=== PATIENT | male | born 1950 | race Caucasian/White ===

== ENCOUNTER 2019-04-21 17:02 | Inpatient (IN) | payer OTHER, MEDICAID ==
[~2019-04-21] VITALS: Ht 193 cm; Wt 78.9 kg
[2019-04-21 17:37] VITALS: BP_SYST 114
[2019-04-21] MEDS ORDERED: APIX5TAB4 PO (17:50)
[2019-04-21] MEDS ORDERED: HYDR12.55 PO (17:50)
--- NOTE | 2019-04-21 18:00 | NUR ---
opening notes pt is direct admit from home, pt is aaox1, history of alzheimers per pt's for 7 years. pt has history of multiple falls, noted abrasion on the r. eyebrow. verbal but incorherent. safety precaution in place. bed alrm on. eductaed on the use of call light and bed and tv conttrols but unable to understand teaching. safety precaution in place. call light in reach. bed locked, in low position. bed alarm on. will endorse to night rn.
[2019-04-21] MEDS ORDERED: SER100 PO (18:01)
[2019-04-21] MEDS ORDERED: LIP10 PO (18:01)
[2019-04-21] MEDS ORDERED: GLU500 PO (18:01)
[2019-04-21] MEDS ORDERED: GALA12TA4 PO (18:01)
[2019-04-21] MEDS ORDERED: LOSA100T3 PO (18:01)
[2019-04-21] MEDS ORDERED: MEMA10TA PO (18:01)
[2019-04-21] MEDS ORDERED: PRO40 PO (18:01)
[2019-04-21] MEDS ORDERED: CEL20 PO (18:01)
[2019-04-21] MEDS ORDERED: DIVA250T PO (18:01)
[2019-04-21 18:18] LABS: BASOPHILS # (AUTO) 0.1 K/uL (0.0-0.2); BASOPHILS % (AUTO) 0.6 % (0.0-2.0); EOSINOPHILS # (AUTO) 0.3 K/uL (0.0-0.4); EOSINOPHILS % (AUTO) 2.5 % (0.0-4.0); HEMATOCRIT 39.2 % (36-54); HEMOGLOBIN 12.6 g/dL (14.0-18.0); LYMPHOCYTES # (AUTO) 2.2 K/uL (1.0-5.5); LYMPHOCYTES % (AUTO) 18.3 % (20.5-51.5); MEAN CORPUSCULAR HEMOGLOBIN 28 pg (27-31); MEAN CORPUSCULAR HGB CONC 32 % (32-36); MEAN CORPUSCULAR VOLUME 88 fL (79.0-98.0); MONOCYTES # (AUTO) 1.1 K/uL (0.0-1.0); MONOCYTES % (AUTO) 9.1 % (1.7-9.3); NEUTROPHILS # (AUTO) 8.2 K/uL (1.8-7.7); NEUTROPHILS % (AUTO) 69.5 % (40.0-70.0); PLATELET COUNT (AUTO) 104 K/uL (130-430); RED BLOOD CELL COUNT(AUTO) 4.45 MIL/uL (4.2-6.2); RED CELL DISTRIBUTION WIDTH 14.3 % (9.0-15.0); WHITE BLOOD COUNT (AUTO) 11.8 K/uL (4.8-10.8)
[2019-04-21 18:27] LABS: ALBUMIN 3.2 g/dL (3.4-4.8); CALCIUM 9.6 mg/dL (8.4-11.0); CREATININE 1.19 mg/dL (0.55-1.30); POTASSIUM 3.9 mmol/L (3.5-5.1); TOTAL BILIRUBIN 0.5 mg/dL (0.0-1.0)
[2019-04-21] MEDS ORDERED: CITALOPRAM HYDROBROMIDE 20 MG TABLET PO ONE (19:15)
[2019-04-21] MEDS ORDERED: D5W 1,000 ML IV PRN (19:30)
[2019-04-21] MEDS ORDERED: DEXTROSE 50%-WATER 50 ML DISP.SYRIN IVP PRN (19:30)
[2019-04-21] MEDS ORDERED: metFORMIN HCL 500 MG TABLET PO ONE (19:30)
[2019-04-21] MEDS ORDERED: GLUCOSE 15 GM GEL (in 37.5 GM TUBE) PO PRN (19:30)
--- NOTE | 2019-04-21 19:30 | NUR ---
PM NOTES pt. is confused, noted with garbled speech, reoriented to reality and surroundings, vital signs stable, no distress noted, denies pain, encouraged pt. to use call light for assistance, call light within reach, bed in lowest position.
[2019-04-21 20:00] VITALS: BP_SYST 117
--- NOTE | 2019-04-21 20:00 | NUR ---
CONFUSION pt. is confused, pt. is standing at bedside, reoriented pt. to surroundings, fall precautions maintained, assisted pt. back into bed.
[2019-04-21] MEDS: ATORVASTATIN 10 MG TABLET PO SCH (20:18)
[2019-04-21] MEDS: MEMANTINE HCL 5 MG TABLET PO SCH (20:18)
[2019-04-21] MEDS: DIVALPROEX SODIUM 250 MG TAB.SR.24H (DEPAKOTE ER) PO SCH (20:18)
[2019-04-21] MEDS: QUEtiapine FUMARATE 100 MG TABLET PO SCH (20:18)
[2019-04-21] MEDS: GALANTAMINE HYDROBROMIDE 4 MG TABLET PO SCH (20:18)
[2019-04-21] MEDS: INSULIN REGULAR, HUMAN 100 UNITS/ML, 10 ML VIAL (novoLIN R) SUBCUT PRN (20:26)
--- NOTE | 2019-04-21 20:27 | NUR ---
Med pass. Blood sugar 158. Administered 2 units of regular insulin per PRN insulin sliding scale.
[2019-04-21] MEDS ORDERED: KCL 20 mEq in D5/0.45NS 1000mL 1,000 ML IV ONE (21:14)
[2019-04-21] MEDS: KCL 20 mEq in D5/0.45NS 1000mL 1,000 ML IV SCH (21:37)
--- NOTE | 2019-04-21 22:00 | NUR ---
RN ROUNDS pt. asleep, no distress noted, no s/s of pain or discomfort, bed in lowest position, bed alarm on.
--- NOTE | 2019-04-22 00:02 | NUR ---
RN ROUNDS pt. asleep, no distress noted, no s/s of pain or discomfort, bed in lowest position, bed alarm on.
--- NOTE | 2019-04-22 02:02 | NUR ---
RN ROUNDS pt. sleeping, no distress noted, no s/s of pain or discomfort, bed in lowest position, bed alarm on.
[2019-04-22 04:00] VITALS: BP_SYST 121
--- NOTE | 2019-04-22 04:55 | NUR ---
INCONTINENCE PT. INCONTINENT OF URINE, MORRO CARE DONE, NEW GOWN APPLIED, NEW LINEN APPLIED.
[2019-04-22 05:08] LABS: BASOPHILS % (AUTO) 0.5 % (0.0-2.0); EOSINOPHILS # (AUTO) 0.3 K/uL (0.0-0.4); EOSINOPHILS % (AUTO) 3.9 % (0.0-4.0); HEMOGLOBIN 11.3 g/dL (14.0-18.0); LYMPHOCYTES # (AUTO) 1.9 K/uL (1.0-5.5); LYMPHOCYTES % (AUTO) 24.9 % (20.5-51.5); MEAN CORPUSCULAR HEMOGLOBIN 28 pg (27-31); MEAN CORPUSCULAR HGB CONC 32 % (32-36); MEAN CORPUSCULAR VOLUME 88 fL (79.0-98.0); MONOCYTES # (AUTO) 0.7 K/uL (0.0-1.0); MONOCYTES % (AUTO) 9.1 % (1.7-9.3); NEUTROPHILS # (AUTO) 4.8 K/uL (1.8-7.7); NEUTROPHILS % (AUTO) 61.6 % (40.0-70.0); RED BLOOD CELL COUNT(AUTO) 3.98 MIL/uL (4.2-6.2); RED CELL DISTRIBUTION WIDTH 14.5 % (9.0-15.0); WHITE BLOOD COUNT (AUTO) 7.8 K/uL (4.8-10.8)
[2019-04-22 05:21] LABS: CREATININE 0.97 mg/dL (0.55-1.30); POTASSIUM 3.4 mmol/L (3.5-5.1)
--- NOTE | 2019-04-22 06:13 | NUR ---
CLOSING NOTE BLOOD ANHRV=815, NO COVERAGE REQUIRED, PT. IS AWAKE, PT. IS ATTEMPTING TO GET OUT OF BED, REORIENTED TO REALITY, SAFETY PRECAUTIONS MAINTAINED, BED IN LOWEST POSITION, BED ALARM ON.
[2019-04-22 07:02] LABS: PLATELET COUNT (AUTO) 88 K/uL (130-430)
--- NOTE | 2019-04-22 07:30 | NUR ---
Initial notes: Patient sleeping. Stable. I.V. access patent. Sitter at bedside. Safety measures in placed. Report received from JUDY Vazquez.
[2019-04-22 08:00] VITALS: BP_SYST 120
--- NOTE | 2019-04-22 08:16 | NUR ---
Nutrition Update Jeff Scale 17 noted. Pt admitted for head injury/fall. Diet: [facility] [place] BMI: 21.3 kg/m2 RD to follow per nutrition care standards.
--- NOTE | 2019-04-22 08:30 | NUR ---
notes: Patient eating breakfast with assist. Food set up and able to feed himself a few bites and needs encouragement. Patient incontinent of voiding. Cleaned up, partial bath and changed gown. Patient sitting on the chair.
[2019-04-22] MEDS: KCL 20 mEq in D5/0.45NS 1000mL 1,000 ML IV SCH ×2 (08:52→20:45)
[2019-04-22] MEDS: metFORMIN HCL 500 MG TABLET PO SCH ×2 (08:53→17:05)
[2019-04-22] MEDS: GALANTAMINE HYDROBROMIDE 4 MG TABLET PO SCH ×2 (08:53→20:28)
[2019-04-22] MEDS: MEMANTINE HCL 5 MG TABLET PO SCH ×2 (08:53→20:28)
[2019-04-22] MEDS: PANTOPRAZOLE SODIUM 40 MG TAB PO SCH (08:53)
[2019-04-22] MEDS: LOSARTAN POTASSIUM 50 MG TABLET (COZAAR) PO SCH (08:54)
[2019-04-22] MEDS: DIVALPROEX SODIUM 250 MG TAB.SR.24H (DEPAKOTE ER) PO SCH ×2 (08:55→20:28)
[2019-04-22] MEDS: CITALOPRAM HYDROBROMIDE 20 MG TABLET PO SCH (08:55)
--- NOTE | 2019-04-22 10:47 | NUR ---
notes: patient sleeping on the bed. no distress noted.
[2019-04-22 12:00] VITALS: BP_SYST 127
[2019-04-22] MEDS: INSULIN REGULAR, HUMAN 100 UNITS/ML, 10 ML VIAL (novoLIN R) SUBCUT PRN (12:01)
--- NOTE | 2019-04-22 13:04 | NUR ---
notes: Patient ate his lunch meal 100% with feeding. Went back to sleep.
--- NOTE | 2019-04-22 14:01 | NUR ---
DC Planning: LVM to pt's spouse/Mariah # [phone] for dcp assessment. Addendum: 04/22/19 at 1447 by Todd Teixeira RN Per dr. Richard: to arrange snf placement with [facility].-- libra Sepulvedap made aware.
--- NOTE | 2019-04-22 14:08 | NUR ---
NOTES: Patient sleeping. no distress noted.
--- NOTE | 2019-04-22 14:26 | NUR ---
Transfer of care to JUDY Parham. Report given.
--- NOTE | 2019-04-22 14:30 | NUR ---
Note Rec'd report from Latesha KIM (previous RN) for continuation of care. Agree with am assessment. Pt drowsy and resting in bed at this time with IVF's infusing well through right forearm IV site. Pt incontinent and care given. RN sitting next to pt's bed for observation and to help with needs and care at this time.
[2019-04-22 15:35] VITALS: BP_SYST 103
--- NOTE | 2019-04-22 16:45 | NUR ---
Note Pt resting in bed, drowsy and sleepy at this time. Pt's mother came to bedside to visit. Spent a few minutes with pt. No needs noted at this time. IVF's infusing well and pt was given hygiene care and partial bath for urine incontinence at this time. Pt stable at this time. Call light within reach.
--- NOTE | 2019-04-22 18:20 | NUR ---
Note Pt was fed his dinner, no choking or difficulty swallowing noted at this time. Pt's right forearm IV site patent and benign with IVF's infusing well at this time. No SOB/resp distress or pain/discomfort noted. Pt getting restless and wants to get OOB, pt reassured and reoriented to room and environment. Pt calmed down and television put on to pt's comfort level. Pt was checked on frequently as RN was sitter at bedside since 1430. No needs noted. Pt stable at this time. Call light within reach and pt has been next to nurses' station all shift for close observation for needs and care.
[2019-04-22 20:00] VITALS: BP_SYST 121
--- NOTE | 2019-04-22 20:00 | NUR ---
Opening notes Pt alert, awake, confused. VSS, afebrile. No s/s distress noted. Incontinent of bowel/bladder. IVF infusing as ordered R. FA 22G secured with kerlix. Sitter remains at bedside. Bed low, locked siderails x3 elevated. To monitor.
--- NOTE | 2019-04-22 20:27 | NUR ---
Med Pass Pt alert, awake, sat pt up. Meds administered as ordered with applesauce one at a time, tolerated well. Blood sugar checked 113, no insulin indicated per ss protocol. Sitter remains at bedside. To monitor.
[2019-04-22] MEDS: ATORVASTATIN 10 MG TABLET PO SCH (20:28)
[2019-04-22] MEDS: QUEtiapine FUMARATE 100 MG TABLET PO SCH (20:28)
[2019-04-22 23:20] VITALS: BP_SYST 104
--- NOTE | 2019-04-22 23:30 | NUR ---
Rounds Pt asleep. No s/s distress or discomfort noted. Sitter remains at bedside. To monitor.
[2019-04-23] MEDS: KCL 20 mEq in D5/0.45NS 1000mL 1,000 ML IV SCH ×2 (01:00→11:53)
--- NOTE | 2019-04-23 01:45 | NUR ---
Rounds Pt asleep, no s/s distress noted. IVF infusing as ordered. Safety measures in place. Sitter at bedside at all times. To monitor.
--- NOTE | 2019-04-23 03:30 | NUR ---
Rounds Pt asleep, no s/s distress noted. IVF infusing as ordered R. FA no s/s infiltration noted. Safety measures in place. Sitter remains at bedside. To monitor.
--- NOTE | 2019-04-23 05:15 | NUR ---
Hygiene Pt incontinent of urine. Pericare provided with DATA ENTRY assist. Safety maintained. To monitor.
--- NOTE | 2019-04-23 05:50 | NUR ---
Pt moved from RM 113-B to 132-B via bed. All belongings with pt.
--- NOTE | 2019-04-23 06:23 | NUR ---
Closing notes Pt asleep, easily arousable. No s/s distress noted. Blood sugar checked 143, no insulin indicated per ss protocol. IVF infusing R. FA 22G no s/s infiltration. Sitter at bedside at all times. Bed low, locked siderails x 3 elevated. To endorse to AM nurse.
[2019-04-23] MEDS: metFORMIN HCL 500 MG TABLET PO SCH ×2 (08:00→18:29)
--- NOTE | 2019-04-23 08:00 | NUR ---
initial notes rec patient asleep but arousable to stimuli. ivf infusing well on the r fa. no infiltration noted. resp easy and unlabored. no sob noted. bed to the lowest position and side rails up and locked. call light withn reached and knows when to call for assistance. will continue to monitor patient.
[2019-04-23 08:14] VITALS: BP_SYST 117
--- NOTE | 2019-04-23 10:15 | NUR ---
rounds at bedside and made her aware that pt refused breakfast.ontinue to sleep at intervals.
[2019-04-23 12:00] VITALS: BP_SYST 113
--- NOTE | 2019-04-23 12:00 | NUR ---
rounds no hypo hyperglycemic reaction noted. pt eating at bedside with min assists. call light within reached.
[2019-04-23] MEDS: LOSARTAN POTASSIUM 50 MG TABLET (COZAAR) PO SCH (12:41)
[2019-04-23] MEDS: MEMANTINE HCL 5 MG TABLET PO SCH ×2 (12:42→20:50)
[2019-04-23] MEDS: DIVALPROEX SODIUM 250 MG TAB.SR.24H (DEPAKOTE ER) PO SCH ×2 (12:42→20:50)
[2019-04-23] MEDS: PANTOPRAZOLE SODIUM 40 MG TAB PO SCH (12:42)
[2019-04-23] MEDS: GALANTAMINE HYDROBROMIDE 4 MG TABLET PO SCH ×2 (12:43→20:51)
[2019-04-23] MEDS: CITALOPRAM HYDROBROMIDE 20 MG TABLET PO SCH (12:43)
--- NOTE | 2019-04-23 13:51 | NUR ---
Dietitian Recommendations * Recommend continuing CCHO, mechanical soft diet per LP, RD Please refer to Nutrition Assessment for details.
--- NOTE | 2019-04-23 14:00 | NUR ---
rounds seen by dr toscano and with orders.
--- NOTE | 2019-04-23 14:00 | NUR ---
rounds seen by dr toscano at bedsided with order.
[2019-04-23] MEDS ORDERED: MILK OF MAGNESIA 30 ML UDC PO PRN (15:00)
--- NOTE | 2019-04-23 15:50 | NUR ---
Discharge planning: DCP faxed pt referral to [facility] (f [phone] p [phone]) DCP to follow up.
[2019-04-23 16:00] VITALS: BP_SYST 115
[2019-04-23 19:40] VITALS: BP_SYST 118
--- NOTE | 2019-04-23 20:30 | NUR ---
Opening notes Pt alert, awake, confused. VSS, no acute distress noted. IVF infusing as ordered R FA 22G no s/s infiltration. Pt incontinent of urine, SHIP DESIGN TEACHER assisted with pericare/hygiene. Sitter at bedside at all times. Safety measures in place. To monitor.
[2019-04-23] MEDS: SENNOSIDES 8.6 MG TABLET PO SCH (20:50)
[2019-04-23] MEDS: QUEtiapine FUMARATE 100 MG TABLET PO SCH (20:50)
[2019-04-23] MEDS: DOCUSATE SODIUM 100 MG CAPSULE PO SCH (20:50)
--- NOTE | 2019-04-23 20:50 | NUR ---
Blood sugar check Pt alert, awake, meds passed, HOB elevated. Pt tolerated well crushed with applesause and sips of water. Blood sugar check 103. To monitor.
[2019-04-23] MEDS: ATORVASTATIN 10 MG TABLET PO SCH (20:51)
--- NOTE | 2019-04-23 21:25 | NUR ---
Pt's son visiting at bedside.
[2019-04-23 22:41] VITALS: BP_SYST 118
[2019-04-24] MEDS: KCL 20 mEq in D5/0.45NS 1000mL 1,000 ML IV SCH ×2 (00:31→14:21)
--- NOTE | 2019-04-24 00:45 | NUR ---
Rounds Pt asleep, respirations even and unlabored. IVF infusing as ordered R. FA no clear, patent. Safety measures in place. Bed low, locked siderails x3 elevated. Sitter at bedside. To monitor.
--- NOTE | 2019-04-24 03:48 | NUR ---
Rounds Pt asleep, no s/s distress noted. IVF infusing as ordered R. FA no s/s infiltration noted. Safety precautions maintained. Sitter at bedside at all times. To monitor.
--- NOTE | 2019-04-24 06:36 | NUR ---
Closing notes Pt asleep, no s/s distress noted. IVF infusing R. FA no s/s infiltration noted. Safety precautions in place. Bed low, locked, alarm on. Sitter at bedside. To endorse to AM nurse.
[2019-04-24 07:18] VITALS: BP_SYST 110
--- NOTE | 2019-04-24 08:00 | NUR ---
initial notes rec patient asleep but arousable to stimuli. ivf infusing well on the r fa. no infiltration noted. bed to the lowest position and side rails up and locked. call light within reached and knows when to call for assistance.
[2019-04-24] MEDS: DOCUSATE SODIUM 100 MG CAPSULE PO SCH ×2 (10:08→21:54)
[2019-04-24] MEDS: LOSARTAN POTASSIUM 50 MG TABLET (COZAAR) PO SCH (10:08)
[2019-04-24] MEDS: PANTOPRAZOLE SODIUM 40 MG TAB PO SCH (10:09)
[2019-04-24] MEDS: CITALOPRAM HYDROBROMIDE 20 MG TABLET PO SCH (10:09)
[2019-04-24] MEDS: MEMANTINE HCL 5 MG TABLET PO SCH ×2 (10:09→21:56)
[2019-04-24] MEDS: metFORMIN HCL 500 MG TABLET PO SCH ×2 (10:09→17:37)
[2019-04-24] MEDS: GALANTAMINE HYDROBROMIDE 4 MG TABLET PO SCH ×2 (10:10→21:56)
[2019-04-24] MEDS: DIVALPROEX SODIUM 250 MG TAB.SR.24H (DEPAKOTE ER) PO SCH ×2 (10:11→21:55)
--- NOTE | 2019-04-24 10:15 | NUR ---
DC Planning: Called spouse/Mariah # [phone], no answer and LVM to # [phone] to call back or to see CM when comes in [facility].
[2019-04-24 11:14] VITALS: BP_SYST 104
--- NOTE | 2019-04-24 11:22 | NUR ---
Discharge Planning; DCP faxed pt referral to [facility] (f [phone] p [phone]) DCP to follow up. Addendum: 04/24/19 at 1438 by Coco Pizarro DP DCP faxed referral to [facility] (f [phone] p [phone]) , [facility] (f [phone] p [phone]) Addendum: 04/24/19 at 1439 by Coco Pizarro DP DCP arranged transportation on [facility] with [facility] ([phone]) Addendum: 04/24/19 at 1521 by Coco Pizarro DP DCP faxed to [facility] ( [phone] p [phone]), [facility] p [phone])
--- NOTE | 2019-04-24 12:30 | NUR ---
rounds at bedside and fed patient. no hypo hyperglycemic reaction noted. resting comfortably. no sob noted.
--- NOTE | 2019-04-24 14:00 | NUR ---
rounds asleep at this time. no sob noted. reported by earlier re having a non productive cough. reported to dr toscano but stated to see patient first.
[2019-04-24 15:49] VITALS: BP_SYST 114
--- NOTE | 2019-04-24 18:30 | NUR ---
closing notes was fed and with good appetite. no hypo hyperglycemic reaction noted. with a sitter at bedside.
[2019-04-24 19:00] VITALS: BP_SYST 119
--- NOTE | 2019-04-24 19:00 | NUR ---
change of shift.pt.presents quiescent affect;calm.pt.presents asphasic speech;non-verbal.per flacc;pt.absent facial grimaces/body posturing.general status stable.respiratory status stable.call light/telephone placed w/in the reach of the pt.
[2019-04-24 20:00] VITALS: BP_SYST 119
--- NOTE | 2019-04-24 20:00 | NUR ---
pt.assessed.v/s assessed;values w/in normal limits.pt.presents quiescent affect;calm.flacc:pain mgx;pt.absent facial grimaces/body posturing. pt.repositioned.pt.assessed for cleanliness.general status stable.respiratory status stable;@room air.call light/telephone placed w/in the reach of the pt.,
--- NOTE | 2019-04-24 20:15 | NUR ---
is presents assessing the pt,@ this hour.i have apprised the of the pt's status.
--- NOTE | 2019-04-24 20:30 | NUR ---
i have assessed the blood glucose;values;113mg/dl.
--- NOTE | 2019-04-24 21:00 | NUR ---
has ordered for the pt.to be transferred to [facility]
--- NOTE | 2019-04-24 21:30 | NUR ---
Received a call from Dr. Richard: Dr Richard called and stated to send patient tomorrow to [facility]. Primary nurse made aware.
--- NOTE | 2019-04-24 21:30 | NUR ---
i have cleaned the pt.for transfer.i have changed the pt's gown;orange;transfer gown.i have assessed the skin of the pt.i have taken photos of the sacrum/rt.eye brow.i have atatende to wound care;i have placed the opti-foam dsg@the respective sites.i have administered the 2100p medications.
[2019-04-24] MEDS: ATORVASTATIN 10 MG TABLET PO SCH (21:55)
[2019-04-24] MEDS: SENNOSIDES 8.6 MG TABLET PO SCH (21:56)
[2019-04-24] MEDS: QUEtiapine FUMARATE 100 MG TABLET PO SCH (21:56)
--- NOTE | 2019-04-24 22:00 | NUR ---
i am apprised the pt.is to be transferred in the am;saturday;04/25/19.[facility]. transfer on hold.i have re-applied the iv fluids.i have noted the pt.is receiving keppra; po.pt.is placed in sx precautions;side rails padded. Addendum: 04/24/19 at 2342 by Joseph Varma RN pt.repositioned.call light/telephone placed w/in the reach of the pt.
--- NOTE | 2019-04-24 22:30 | NUR ---
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 Will try again tomorrow morning.
--- NOTE | 2019-04-25 | NUR ---
pt.assessed.v/s assessed;values w/in normal limits.i have assessed the pt.for cleanliness.pt.repositioned. i have assessed the iv acces;intact;patent;iv fluids infusing.general status stable.respiratory status stable. call light/telephone placed w/in the reach of the pt.
[2019-04-25 00:03] VITALS: BP_SYST 127
--- NOTE | 2019-04-25 02:00 | NUR ---
pt.assessed.pt.assessed for cleanliness.pt.repositioned.iv access assessed;intact;patent.iv fluids infusing. general status stable.respiratory status stable.sx precautions intact.call light/telephone placed w/in the reach of the pt.
--- NOTE | 2019-04-25 04:00 | NUR ---
pt.assessed pt.assessed for cleanliness.pt.repositioned.pt.presents quiescent affect;calm.somnolent.general status stable. respiratory status stable.unlabored.iv access assessed .intact;patent iv fluids infusing.call light/telephone placed w./in the reach of the pt.
--- NOTE | 2019-04-25 05:15 | NUR ---
family attempted to call richard @[phone] got this number from case therapist note . ( person answered the phone said that we have the wrong number.) i then attempted to call [phone] and the phone just rings and there is nothing to leave a message. Charge Nurse Aware.will indorse to next shift to follow up. transport is on will call with [facility]
[2019-04-25] MEDS: KCL 20 mEq in D5/0.45NS 1000mL 1,000 ML IV SCH (05:37)
--- NOTE | 2019-04-25 06:15 | NUR ---
pt.assessed.pt.assessed for cleanliness.pt.cleaned.i have assessed the blood glucose value;98mg/dl. pt.preseoed iv access assessed.intact;patent iv fluids infusing.call light/telephone placed w/in the reach of the pt.
--- NOTE | 2019-04-25 07:40 | NUR ---
opening note patient is resting in bed, assessment completed, educated customer relations coordinator light system and plan of care, no signs of distress, IV clean and intact with IV fluids running, bed in the lowest position, bed alarm on , call light within reach, side rails up with seizure precautions, sitter present, bed close to nurse station.
[2019-04-25 08:02] VITALS: BP_SYST 119
[2019-04-25] MEDS: PANTOPRAZOLE SODIUM 40 MG TAB PO SCH (08:33)
[2019-04-25] MEDS: MEMANTINE HCL 5 MG TABLET PO SCH (08:33)
[2019-04-25] MEDS: DOCUSATE SODIUM 100 MG CAPSULE PO SCH (08:34)
[2019-04-25] MEDS: CITALOPRAM HYDROBROMIDE 20 MG TABLET PO SCH (08:34)
[2019-04-25] MEDS: DIVALPROEX SODIUM 250 MG TAB.SR.24H (DEPAKOTE ER) PO SCH (08:35)
[2019-04-25] MEDS: LOSARTAN POTASSIUM 50 MG TABLET (COZAAR) PO SCH (08:35)
[2019-04-25] MEDS: metFORMIN HCL 500 MG TABLET PO SCH (08:35)
[2019-04-25] MEDS: GALANTAMINE HYDROBROMIDE 4 MG TABLET PO SCH (08:35)
--- NOTE | 2019-04-25 09:37 | NUR ---
rounds patient is resting in bed, eyes closed breathing easy and nonlabored, attempted to feed patient the rest of his breakfast but he nodded his head saying no, patient did physical therapy and was only able to sit on the edge of the bed, no other needs at this time, fall/safety and seizure precautions in place. Attempted to call his to inform her of his acceptance to [facility] but the phone kept ringing and no one answered, will continue to try calling.
[2019-04-25 11:03] VITALS: BP_SYST 119; BP_SYST 121
--- NOTE | 2019-04-25 11:34 | NUR ---
accuchek and discharge update accuchek done and no sliding scale needed at this time, came by earlier to sign consent for transfer to [facility], talked to Catherine from [facility] and another employee and they said they needed RN notes to be faxed over and are questioning his medication, we explained that we don't usually faxed RN notes and we've never been asked to before, facility will call back for an update.
[2019-04-25 12:00] VITALS: BP_SYST 121
--- NOTE | 2019-04-25 13:42 | NUR ---
rounds patient ate 75% of his lunch, report was given to Shira at [facility], awaiting ambulance for pickup, fall/safety and seizure precautions in place.
--- NOTE | 2019-04-25 14:04 | NUR ---
PT TRANSFERRED Report given to Shira at [facility]. Transfer packet with Transfer Orders and Medication Reconciliation form given to EMT with report. Exitcare provided. [facility] ID band removed, replaced with ID band with pt's name and . IV catheter removed, intact and dressing applied, no active bleeding. All belongings sent with patient. Patient left floor via gurney escorted by EMT in no distress.
== END 2019-04-25 14:04 | DRG 640 ==
LOC: SMU 17:32
PROVIDERS: ADMIT Family Medicine; ATTEND Family Medicine
DX: E86.0 Dehydration (principal); N17.0 Acute kidney failure with tubular necrosis; G30.9 Alzheimer's disease, unspecified; E11.9 Type 2 diabetes mellitus without complications; W18.39XA Other fall on same level, initial encounter; T14.90XA Injury, unspecified, initial encounter; G40.909 Epilepsy, unspecified, not intractable, without status epilepticus; E78.5 Hyperlipidemia, unspecified; F02.80 Dementia in other diseases classified elsewhere, unspecified severity, without behavioral disturbance, psychotic disturbance, mood disturbance, and anxiety; I10 Essential (primary) hypertension; Z86.718 Personal history of other venous thrombosis and embolism; Y93.89 Activity, other specified; Y92.89 Other specified places as the place of occurrence of the external cause; Y99.8 Other external cause status
CPT/HCPCS: 36415; 80048; 80053; 82962; 83735-TC; 85025; 97530-GP; J1815